=== PATIENT | male | born 1950 ===

== ENCOUNTER 2021-04-16 04:22 | Emergency (ER) | payer OTHER, MEDICARE ==
--- OUTSIDE RECORDS SUMMARY | 2021-04-16 04:25 | XMS REPORT | Continuity of Care Document ---
:1950 Author Organization [facility] t Address [address] [place] [address] Care Team Providers Name Role Phone Pcp, Does Not Have A Primary Care Physician Nurse, Yennifer Immunization Attending Clinician Unavailable Calderon Vazquez DO Attending Clinician Payers Payer Name Policy Type Policy Number Effective Date Expiration Date S ource Problems This patient has no known problems. Allergies, Adverse Reactions, Alerts This patient has no known allergies or adverse reactions. Social History Social Habit Start Date Stop Date Quantity Comments Source Sex Assigned [birth year] [facility] 00:00:00 00:00:00 [facility] Smoking Status Start Date Stop Date Source Unknown if ever smoked [facility] [place] Medications Ordered Filled Start Stop Current Ordering Indication Dosage Frequency Signature Comments Components Source Medication Medication Date Date Medication? Clinician (SIG) Name Name [facility] 2018-04 2020- No Stefani [address] [facility] 05-05-27 Millender applicatio Sherice es - 00:00: 00:00 n to Memoria 00 :00 affected l toenail(s) Outpati ent Clinics Daily Daily Yes Stefani [address] [facility] Multiple Multiple Millender Lashae kes - Vitamins Vitamins [facility] Simvastatin Simvastatin Yes Stefani [address] [facility] Lisinopril Lisinopril Yes Stefani [address] [facility] Immunizations Ordered Filled Immunization Date Status Comments Sourc e Immunization Name Name SARS-COV-2 COVID-19 2021-03-05 Completed Unive rsity of PFIZER VACCINE 00:00:00 [facility] SARS-COV-2 COVID-19 2020-06-17 Completed Unive rsity of PFIZER VACCINE 00:00:00 [facility] SARS-COV-2 COVID-19 2020-05-27 Completed Unive rsity of PFIZER VACCINE 00:00:00 [facility] Procedures Procedure Date / Time Performed Performing Clinician Sour e SARS-COV-2 COVID-19 2021-03-05 18:03:16 Doctor Unassigned, No [facility] [place] VACCINE,0.3ML,IM Name Medical Branch ([facility]) Encounters Start End Encounter Admission Attending Care Care Encounter Source Date/Time Date/Time Type Type Clinicians Facility Department ID 2021-03-05 2021-03-05 Imm/Inj Nurse, Adc Pob Immunization [facility] [id number] [facility] 11:00:06 11:00:20 Visit Daniel Vazquez [id number] [facility] [id number] Stephanie STOKES [id number] [place] [address] 2021-01-21 2021-01-21 [facility] [id number] 2020-10-22 2020-10-22 [facility] [id number] 2020-07-23 2020-07-23 [facility] [id number] 2020-07-23 2020[facility]07-23 [facility] [id number] [facility] 2020-02-28 2020-02-28 [facility] [id number] [facility] 2019-08-13 2019-08-13 [facility] [id number] [facility] 08:00[facility]00 08:00:00 [facility] Medicine Outpati ent Clinics 2019-03-21 2019-03-21 [facility] [id number] [facility] 23:49:00 23:49:00 [facility] Medicine Outpati ent Clinics 2019-03-05 2019-03-05 [facility] [id number] [facility] 08[facility]00:00 08:00:00 [facility] Medicine Outpati ent Clinics 2019-01-15 2019-01-15 [facility] [id number] 13[facility]00:00 13:00:00 [facility] Outpat[facility] Clin[facility] 2018-12-31 2018-12-31 [facility] [id number] [facility] 16:15:00 16:15:00 [facility] Out[facility] Clin[facility] 2017-09-19 2017-09-19 [facility] [id number] [facility] 08[facility]30:00 08:30:00 [facility] Clin[facility] Results This patient has no known results.
--- NOTE | 2021-04-16 09:15 | RAD REPORT ---
EXAM DESCRIPTION: Keyonna Single View04/16/2021 8:43 am CLINICAL HISTORY: cough COMPARISON: 2019 FINDINGS: Upper lobe vessel prominent Last did of pulmonary venous hypertension. The lungs appear clear of acute infiltrate. The heart is mildly enlarged
[2021-04-16 09:45] LABS: Absolute Lymphocytes (CBC) 1.1 K/uL (0.7-4.9); Hematocrit 40.2 % (39.6-49.0); Lymphocytes % 17.4 % (15.3-44.8); MPV 7.3 fL (7.6-11.3); RBC Red Blood Cell Count 4.16 M/uL (4.33-5.43)
[2021-04-16 09:51] LABS: Protime INR 0.97
[2021-04-16 10:05] LABS: ALT/SGPT 42 U/L (12-78); AST/SGOT 18 U/L (15-37); Albumin 3.6 g/dL (3.4-5.0); Alkaline Phosphatase 66 U/L (45-117); BUN Blood Urea Nitrogen 16 mg/dL (7-18); Bicarbonate 28 mmol/L (21-32); Bilirubin Direct 0.2 mg/dL (0-0.2); Bilirubin Total 0.6 mg/dL (0.2-1.0); Glucose Level 121 mg/dL (74-106); Magnesium 2.3 mg/dL (1.8-2.4); NT PRO-BNP 62 pg/mL (<125); Potassium 4.5 mmol/L (3.5-5.1); Protein, Total 7.6 g/dL (6.4-8.2); Sodium Level 138 mmol/L (136-145); Troponin (Emerg Dept Use Only) < 0.02 ng/mL (0.0-0.045)
--- NOTE | 2021-04-16 11:18 | RAD REPORT ---
EXAM DESCRIPTION: CT - Chest For Pe Angio - 04/16/2021 11:03 am CLINICAL HISTORY: Chest pain COMPARISON: None. TECHNIQUE: Dynamically enhanced axial 3 mm thick images of the chest were obtained during administra tion of <100> mL Isovue 370 IV contrast. Coronal and oblique reconstruction images were generated and reviewed. Exam utilizes a protocol for optimal evaluation of pulmonary arterial tree. Maximum intensity projections 3D imaging was utilized All CT scans are performed using dose optimization technique as appropriate and may include automated exposure control or mA/KV adjustment according to patient size. FINDINGS: A pulmonary embolus is not seen. A thoracic aortic aneurysm is not noted. A pleural effusion is not seen. A pericardial effusion is not seen. Mild to moderate ground-glass opacities right upper lobe. Mild ground-glass opacities right lower lob e. Left lung is clear. Cardiomegaly IMPRESSION: Negative for a pulmonary embolism. Mild to moderate ground-glass opacities right lung may indicate viral pneumonia
--- NOTE | 2021-04-16 11:41 | ER ---
Nurse's Notes [facility] Name: Luke Vásquez Age: 70 yrs Sex: Male : 1950 Arrival Date: 04/16/2021 Time: 04:27 Bed 12 Private MD: Diagnosis: Coronavirus infection, unspecified Presentation: 04/16 07:12 Chief complaint: Patient states: he was diagnosed with Covid on Monday this morning bb his pulse went to 111 so he became concerned because it is normally in the 60s. Coronavirus screen: Client reports previous positive COVID test result. Ebola Screen: No symptoms or risks identified at this time. Initial Sepsis Screen: Does the patient meet any 2 criteria? No. Patient's initial sepsis screen is negative. Does the patient have a suspected source of infection? No. Patient's initial sepsis screen is negative. Risk Assessment: Do you want to hurt yourself or someone else? Patient reports no desire to harm self or others. Onset of symptoms was April 16, 2021. 07:12 Method Of Arrival: Ambulatory bb 07:12 Acuity: RAMON 5 bb Triage Assessment: 09:14 General: Appears in no apparent distress. Behavior is calm, cooperative. jackson Historical: - Allergies: 07:14 No Known Allergies; bb - Immunization history:: Adult Immunizations up to date, Pfizer x 3. - Social history:: Smoking status: Patient denies any tobacco usage or history of. Screenin:13 Abuse screen: Denies threats or abuse. Denies injuries from another. Nutritional jackson screening: No deficits noted. Tuberculosis screening: No symptoms or risk factors identified. Fall Risk None identified. Assessment: 09:13 Pain: Denies pain. jackson Vital Signs: 07:12 BP 171 / 80; Pulse 58; Resp 16 S; Temp 97.8(O); Pulse Ox 99% on R/A; Weight 92.99 kg bb (R); Height 5 ft. 11 in. (180.34 cm) (R); Pain 0/10; 09:14 BP 157 / 71; Pulse 57; Resp 18; Pulse Ox 100% on R/A; jackson 10:25 BP 185 / 77; Pulse 69; Resp 18; Pulse Ox 99% ; jackson 11:27 BP 176 / 70; Pulse 74; Resp 18; Pulse Ox 100% ; jackson 07:12 Body Mass Index 28.59 (92.99 kg, 180.34 cm) ED Course: 04:27 Patient arrived in ED. ja2 07:14 Triage completed. bb 07:14 Arm band placed on Patient placed in waiting room, Patient notified of wait time. bb 08:44 XRAY Chest (1 view) In Process Unspecified. EDMS 08:55 Abel Dan PA is PHCP. [facility] 08:55 Branden Kimball MD is Attending Physician. jmm 09:13 Patient has correct armband on for positive identification. jackson 09:13 No provider procedures requiring assistance completed. jackson 09:40 Basic Metabolic Panel Sent. jackson 09:40 CBC with Diff Sent. jackson 09:40 LFT's Sent. jackson 09:40 Magnesium Sent. jackson 09:40 NT PRO-BNP Sent. jackson 09:40 PT-INR Sent. jackson 09:40 Troponin (emerg Dept Use Only) Sent. jackson 11:03 CT Chest For PE Angio In Process Unspecified. EDMS 11:50 IV discontinued, intact, Pressure dressing applied. jackson Administered Medications: No medications were administered Outcome: 11:40 Discharge ordered by . [facility] 11:50 Discharged to home jackson 11:50 Condition: good 11:50 Discharge instructions given to patient. 11:50 Patient left the ED. jackson Signatures: Dispatcher [employer] EDMS Abel Dan PA PA jmm Ballard, Brenda, RN RN Sofya Jenkins Heather, RN RN jackson
--- NOTE | 2021-04-16 11:41 | EDPHYS ---
Physician Documentation [facility] Name: Luke Vásquez Age: 70 yrs Sex: Male : 1950 Arrival Date: 04/16/2021 Time: 04:27 Bed 12 Private MD: ED Physician Branden Kimball HPI: 04/16 07:10 This 70 yrs old Male presents to ER via Ambulatory with complaints of Cough, High Blood jmm Pressure, COVID+. 07:10 The patient or guardian reports cough. Onset: The symptoms/episode began/occurred jmm gradually, 1 day(s) ago. Modifying factors: The symptoms are alleviated by nothing, the symptoms are aggravated by nothing. Associated signs and symptoms: Pertinent positives: fever. Two 70-year-old male with history of hypertension the presents emerged department with concerns due to an elevated heart rate which awoke him early this morning. Denies chest pain or shortness of breath. Patient states having a fever yesterday and testing positive for covid. . Historical: - Allergies: 07:14 No Known Allergies; bb - Immunization history:: Adult Immunizations up to date, Pfizer x 3. - Social history:: Smoking status: Patient denies any tobacco usage or history of. ROS: 07:10 Constitutional: Negative for fever, chills, and weight loss, Cardiovascular: Negative jmm for chest pain, palpitations, and edema, Respiratory: Negative for shortness of breath, cough, wheezing, and pleuritic chest pain, Abdomen/GI: Negative for abdominal pain, nausea, vomiting, diarrhea, and constipation. 07:10 All other systems are negative. Exam: 07:10 Constitutional: This is a well developed, well nourished patient who is awake, alert, jmm and in no acute distress. Head/Face: atraumatic. Eyes: EOMI, no conjunctival erythema appreciated ENT: Moist Mucus Membranes Neck: Trachea midline, Supple Chest/axilla: Normal chest wall appearance and motion. 07:10 Back: Normal ROM Skin: General appearance color normal MS/ Extremity: Moves all extremities, no obvious deformities appreciated, no edema noted to the lower extremities Neuro: Awake and alert, normal gait Psych: Behavior is normal, Mood is normal, Patient is cooperative and pleasant 07:10 Cardiovascular: Rate: normal, Rhythm: regular, Pulses: no pulse deficits are appreciated. Vital Signs: 07:12 BP 171 / 80; Pulse 58; Resp 16 S; Temp 97.8(O); Pulse Ox 99% on R/A; Weight 92.99 kg bb (R); Height 5 ft. 11 in. (180.34 cm) (R); Pain 0/10; 09:14 BP 157 / 71; Pulse 57; Resp 18; Pulse Ox 100% on R/A; jakcson 10:25 BP 185 / 77; Pulse 69; Resp 18; Pulse Ox 99% ; jackson 11:27 BP 176 / 70; Pulse 74; Resp 18; Pulse Ox 100% ; jackson 07:12 Body Mass Index 28.59 (92.99 kg, 180.34 cm) bb MDM: 09:27 Patient medically screened. [facility] 11:40 Data reviewed: vital signs, nurses notes. Counseling: I had a detailed discussion with cameron the patient and/or guardian regarding: the historical points, exam findings, and any diagnostic results supporting the discharge/admit diagnosis, lab results, radiology results, the need for outpatient follow up, to return to the emergency department if symptoms worsen or persist or if there are any questions or concerns that arise at home. 04/16 09:27 Order name: Basic Metabolic Panel; Complete Time: 10:15 [facility] 04/16 09:27 Order name: CBC with Diff; Complete Time: 09:55 [facility] 04/16 09:27 Order name: LFT's; Complete Time: 10:15 [facility] 04/16 09:27 Order name: Magnesium; Complete Time: 10:15 [facility] 04/16 09:27 Order name: NT PRO-BNP; Complete Time: 10:15 [facility] 04/16 09:27 Order name: PT-INR; Complete Time: 09:55 [facility] 04/16 07:10 Order name: XRAY Chest (1 view); Complete Time: 09:27 rn 04/16 09:27 Order name: Troponin (emerg Dept Use Only); Complete Time: 10:15 [facility] 04/16 09:27 Order name: EKG; Complete Time: 09:28 [facility] 04/16 09:27 Order name: Cardiac monitoring; Complete Time: 10:24 [facility] 04/16 09:27 Order name: EKG - Nurse/Tech; Complete Time: 10:24 [facility] 04/16 09:27 Order name: IV Saline Lock; Complete Time: :40 [facility] 04/16 10:15 Order name: D-Dimer; Complete Time: : [facility] 04/16 10:32 Order name: CT Chest For PE Angio; Complete Time: 11:19 [facility] 04/16 09:27 Order name: Labs collected and sent; Complete Time: :40 [facility] 04/16 09:27 Order name: O2 Per Protocol; Complete Time: :40 [facility] 04/16 09:27 Order name: O2 Sat Monitoring; Complete Time: :40 [facility] Administered Medications: No medications were administered Disposition: 18:01 Co-signature as Attending Physician, Branden Kimball MD I agree with the assessment and rn plan of care. Attestation: The patient's history, exam findings, diagnostics, and a summary of any interventions or procedures was reviewed in detail with Abel FOY. Disposition Summary: 04/16/21 11:40 Discharge Ordered Location: Home [facility] Condition: Stable [facility] Diagnosis - Coronavirus infection, unspecified [facility] Followup: [facility] - With: Private Physician - When: 2 - 3 days - Reason: Recheck today's complaints, Continuance of care, Re-evaluation by your physician Discharge Instructions: - Discharge Summary Sheet [facility] - COVID-19 [facility] Forms: - Medication Reconciliation Form [facility] - Thank You Letter [facility] - Antibiotic Education [facility] - Prescription Opioid Use [facility] Signatures: Dispatcher [employer] Abel Yadav PA PA jmm Ballard, Brenda, RN RN Branden Enrique MD MD rn
[2021-04-16 11:56] VITALS: TEMP 97.8
[2021-04-16 12:00] VITALS: BP 176/70; O2SAT 100
== END 2021-04-16 11:50 | disposition home or self-care (01) ==
LOC: ER 04:22
DX: U07.1 COVID-19 (principal); I10 Essential (primary) hypertension
CPT/HCPCS: 93005; 85025; 80048; 36415; 83735; 85610; 85379; 80076; 84484; 83880; 71275; 71045; 99283; Q9967